=== PATIENT | female | born 1985 | race Caucasian/White ===

== ENCOUNTER 2016-06-04 14:49 | Emergency (ER) | payer MEDICAID ==
[~2016-06-04] VITALS: Ht 165.1 cm; Wt 78.6 kg
[2016-06-04] MEDS ORDERED: KETOROLAC 60 MG/2 ML (TORADOL) VIAL IM ONE (15:25)
[2016-06-04] MEDS ORDERED: ED- CYCLOBENZAPRINE 10 MG (FLEXERIL) 3 TABLETS/BTL PO ONE (15:25)
[2016-06-04] MEDS ORDERED: CYCLOBENZAPRINE 10 MG (FLEXERIL) TAB PO ONE (15:30)
[2016-06-04 15:38] VITALS: BP 125/87
== END 2016-06-04 15:38 | disposition home or self-care (01) ==
LOC: EDUNIT# 14:49 → ED 14:50
DX: R51 Headache (principal)
CPT/HCPCS: 96372; 99282; A9270; J1885

== ENCOUNTER 2016-08-01 16:20 | Emergency (ER) | payer SELFPAY ==
[~2016-08-01] VITALS: Ht 167.6 cm; Wt 81.0 kg
[2016-08-01 16:57] VITALS: BP 129/78
== END 2016-08-01 16:57 | disposition home or self-care (01) ==
LOC: ED 16:23
DX: M70.88 Other soft tissue disorders related to use, overuse and pressure other site (principal)
CPT/HCPCS: 99283; L3908